=== PATIENT | female | born 1980 | race Caucasian/White ===

== ENCOUNTER → 2016-10-11 | Outpatient (CLI) | payer OTHER ==
[~2016-10-11] MED LIST: AMOXICILLIN PO; BACTRIM DS TABL1 TAB PO; CAMBIA50 MG PO; CIPRO PO; CIPRO250 MG PO; CITRATE OF MAG296 ML PO; FLEXERIL10 MG PO; IBUPROFEN PO; LORTAB 10-5001 EACH PO; LORTAB 10/500 T1 TAB PO; LORTAB 5/500 TA1 TA2 PO; LOTRISONE LOTIO30 ML TOP; MACROBID 100 M100 MG PO; MACROBID100 MG PO; MAGIC MOUTH WASH PO; NEXIUM PO; NORCO 5/325 TAB1 TAB PO; PHENERGAN PO; PREDNISONE PO; PRENATAL VITAMI1 TA4 PO; PYRIDIUM PO; TESSALON200 MG PO; VOLTAREN75 MG PO; WELLBUTRIN SR150 MG PO; ZANTAC PO; ZITHROMAX PO; ZITHROMAX1 G/PKT PO; ZOFRAN PO
--- NOTE | ~2016-10-11 | CR7 ---
[facility] A Service of [facility] RADIOLOGY TEXT RESULTS PATIENT: NIGEL CRUZ LOCATION: [facility] : 84 UNIT #: [id number] AGE: [address]: Oneyda Mccabe APRN SEX: F ORDER DR: [id number] [facility] [address] [place], [place] [address] [id number] O MR#: [id number] Acc #: [id number] NAME: NIGEL CRUZ. : 1980 SEX: F STUDY DATE/TIME: 10/11/2016 11:11 UNIT: [facility] ROOM: STUDY DESCRIPTION: CR Abdomen Single AP View Attending Physician: Oneyda Mccabe Aprn Referring Physician: Oneyda Mccabe Aprn Ordering Physician: Oneyda Mccabe Aprn Primary Care Physician: Anu Burr M.D. MEDICAL IMAGING REPORT This report is preliminary unless electronic signature is present EXAM KUB HISTORY Lower abdominal pain toward the right for the past week. TECHNIQUE A single view of the abdomen was obtained and compared with 05/29/2008. FINDINGS Clips are seen in the right upper quadrant. There is moderately increased stool throughout the colon appearing similar to the previous exam. The small bowel pattern is normal. No suspicious masses or calcifications are seen. IMPRESSION Essentially normal bowel gas pattern. Moderately increased stool in the colon is unchanged from previous study. No acute findings. Dictated by... Quinn Ritchie M.D. THIS IS AN ELECTRONICALLY VERIFIED REPORT Quinn Ritchie M.D. at 10/12/2016 3:44 PM DEVI/dwayne TD: 10/12/2016 07:50 JOB #: [id number] MEDICAL IMAGING REPORT Page 1 of 1 COPY
== END | disposition home or self-care (01) ==
LOC: CRAD 10:59
DX: R10.9 Unspecified abdominal pain (principal)
CPT/HCPCS: 74000